=== PATIENT | female | born 1935 | race Caucasian/White ===

== ENCOUNTER → 2019-03-29 | Outpatient (CLI) | payer MEDICARE, BC ==
--- NOTE | 2019-04-02 15:02 | P.ARTDOP ---
Arterial Doppler LOWER EXTREMITY ARTERIAL DOPPLER: DATE OF SERVICE: 03/29/2019 Reason for study: Discoloration of hands and feet, suspected Raynaud's. Doppler waveforms: Multiphasic bilaterally throughout. Pulse volume recording: Digital PPG waveforms on the digits are consistently blunted to almost flat line. Pressure gradients: Only at the toe level. Ankle-brachial indices: 0.94 on the right and 0.97 on the left. Toe pressures: 44 on the right, 61 on the left Impression: Fairly normal flow proximally. Poor flow other digital level. Possibly related to severe distal disease but more likely related to peripheral vasoconstrictive phenomenon. Clinical correlation recommended
--- NOTE | 2019-04-17 14:25 | P.ARTDOP ---
Arterial Doppler Upper extremity arterial Doppler: Date of study: 03/29/2019 Reason for study: Suspect Raynaud's Findings: There are no segmental arterial Dopplers done. We have only digital plethysmography readings to go by. The patient has normal brachial artery pressures however with no right to left pressure gradient. The waveforms on all the digits are extremely blunted. They are all monophasic to flat line. Impression: Limited study, but findings suggest significant vasospastic phenomenon. Clinical correlation recommended.
== END ==
LOC: RADUSWWP 12:44
PROVIDERS: ATTEND Family Medicine
DX: I73.00 Raynaud's syndrome without gangrene (principal); R20.0 Anesthesia of skin
CPT/HCPCS: 93922